=== PATIENT | female | born 1990 | race Two or more races ===

== ENCOUNTER 2022-09-11 00:30 | Emergency (ER) | payer MEDICAID ==
[~2022-09-11] VITALS: Ht 165.1 cm; Wt 63.5 kg
[2022-09-11 00:46] VITALS: BP_SYST 112
--- NOTE | 2022-09-11 00:50 | NUR ---
Pt from home with c/o nausea, cough, SOB, headache, fever, and feeling lightheaded. Pt VSS. To remain in waiting room for MSE.
[2022-09-11] MEDS ORDERED: ACETAMINOPHEN 500 MG TABLET PO ONE (01:00)
--- NOTE | 2022-09-11 01:12 | NUR ---
MD with patient in triage.
[2022-09-11] MEDS ORDERED: KETOROLAC TROMETHAMINE 30 MG VIAL IM ONE (01:30)
[2022-09-11] MEDS ORDERED: PRED20TA PO (02:19)
[2022-09-11] MEDS ORDERED: ALBMDI INH (02:19)
[2022-09-11 02:50] VITALS: BP_SYST 112
--- NOTE | 2022-09-11 02:50 | NUR ---
Patient given written and verbal discharge instructions and verbalizes understanding. ER Dr. Ramey discussed with patient the results and treatment provided. Patient in stable condition. ID arm band removed. Rx of albuterol and prednisone given. Patient educated on pain management and to follow up with PMD. Pain Scale 0. Opportunity for questions provided and answered. Medication side effect fact sheet provided.
== END 2022-09-11 02:50 | disposition home or self-care (01) ==
LOC: SED 00:30
DX: R53.81 Other malaise (principal); R51.9 Headache, unspecified; R50.9 Fever, unspecified; R05.9 Cough, unspecified; Z79.899 Other long term (current) drug therapy; Z20.822 Contact with and (suspected) exposure to COVID-19
CPT/HCPCS: 99284; 71045; 87426; 36415; 81025; 96372; 87804 ×2; J1885